=== PATIENT | female | born 1975 | race Hispanic/Latino ===

== ENCOUNTER 2016-08-10 19:06 | Emergency (ER) | payer OTHER ==
[~2016-08-10] VITALS: Ht 167.6 cm; Wt 130.2 kg
[2016-08-10] MEDS ORDERED: PERCOCET 5/31 TABLET PO (22:29)
[2016-08-10 23:38] VITALS: BP 168/101
== END 2016-08-10 23:56 | disposition home or self-care (01) ==
LOC: EME 19:06
DX: S70.02XA Contusion of left hip, initial encounter (principal); W10.9XXA Fall (on) (from) unspecified stairs and steps, initial encounter; E11.9 Type 2 diabetes mellitus without complications; I10 Essential (primary) hypertension
CPT/HCPCS: 72192; 73502; 99281; 99285

== ENCOUNTER 2016-11-28 12:30 | Emergency (ER) | payer OTHER ==
[~2016-11-28] VITALS: Ht 167.6 cm; Wt 117.8 kg
[~2016-11-28 12:30] MED LIST: PERCOCET 5/31 TABLET PO
[2016-11-28 13:57] LABS: EOSINOPHIL (%) 1.1 % (0-5); EOSINOPHIL COUNT 0.1 K/uL (0-0.3); HEMATOCRIT 35.7 % (36.0-46.0); IMMATURE GRANULOCYTE (%) 0.5 % (0.0-0.7); IMMATURE GRANULOCYTE COUNT 0.1 K/uL; INSTRUMENT ABS NEUTROPHIL CT 7.8 K/uL; LYMPHOCYTE COUNT 2.1 K/uL (1.0-2.8); MCH 25.2 PG (29.0-34.0); MCHC 31.9 G/DL (30.0-36.0); MEAN PLAT.VOLUME 10.6 uM^3 (9.5-12.4); MONOCYTE (%) 4.4 % (3-12); MONOCYTE COUNT 0.5 K/uL (0-0.8); NEUTROPHIL (%) 73.9 % (45-76); NEUTROPHIL COUNT 7.8 K/uL (1.8-6.4); PLATELET COUNT 266 K/uL (156-360); RBC DIS.WIDTH-CV 14.7 % (11.8-14.6); RBC DIS.WIDTH-SD 42.5 % (39-53); RED BLOOD COUNT 4.52 M/uL (3.80-5.20); WHITE BLOOD COUNT 10.5 K/uL (4.1-10.2)
[2016-11-28 14:06] LABS: CHLORIDE 107 mEq/L (99-109); POTASSIUM 4.2 mEq/L (3.7-5.4); SODIUM 139 mEq/L (136-147)
[2016-11-28 14:08] LABS: GLUCOSE 97 mg/dL (70-99)
[2016-11-28 14:09] LABS: ANION GAP 6 MEQ/L (2-14)
[2016-11-28 14:10] LABS: TOTAL BILIRUBIN 1.1 mg/dL (0.0-1.0)
[2016-11-28 14:12] LABS: ALKALINE PHOSPHATASE 67 IU/L (3-129); GFR ESTIMATE (CALCULATED) > 59 mL/min/
[2016-11-28 14:13] LABS: UREA NITROGEN (BUN) 13 mg/dL (9-23)
[2016-11-28 14:15] LABS: LIPASE 8 U/L (1.0-51.0)
[2016-11-28 14:18] LABS: TROP-I INTERPRETATION NEGATIVE; TROPONIN-I < 0.01 ng/mL (0.0-0.30)
[2016-11-28 14:21] LABS: QUANTITATIVE HCG < 4.0 MIU/ML
[2016-11-28 14:54] LABS: ADD MIUA? NO; BILIRUBIN NEGATIVE; BLOOD NEGATIVE; COLOR YELLOW ((YELLOW)); GLUCOSE (STRIP) NEGATIVE; KETONES NEGATIVE; LEUKOCYTES NEGATIVE; NITRITE NEGATIVE; PROTEIN (STRIP) 30; SPECIFIC GRAVITY 1.015 (1.000-1.030); UCUL ADDED? NO; UROBILINOGEN 0.2 MG/DL (0.2-1.0)
[2016-11-28 14:57] LABS: D-DIMER ELISA 0.23 mg/L FEU (< 0.57)
[2016-11-28 16:52] LABS: TROP-I INTERPRETATION NEGATIVE; TROPONIN-I < 0.01 ng/mL (0.0-0.30)
[2016-11-28 17:42] VITALS: BP 152/94
== END 2016-11-28 17:43 | disposition home or self-care (01) ==
LOC: EME 12:30
PROVIDERS: Emergency Medicine
DX: R07.9 Chest pain, unspecified (principal); M54.89 Other dorsalgia; R11.0 Nausea; R06.02 Shortness of breath; R25.2 Cramp and spasm; I10 Essential (primary) hypertension
CPT/HCPCS: 71020; 80053; 81003; 83690; 84484; 84702; 85025; 85379; 93005; 99281; 99285

== ENCOUNTER 2017-04-17 16:44 | Emergency (ER) | payer OTHER ==
[~2017-04-17] VITALS: Ht 167.6 cm; Wt 118.0 kg
[2017-04-17] MEDS ORDERED: NORVASC10 MG PO (17:16)
[2017-04-17] MEDS ORDERED: LOSARTAN POTAS100 MG PO (17:16)
[2017-04-17 18:55] VITALS: BP 155/91
== END 2017-04-17 18:56 | disposition home or self-care (01) ==
LOC: EME 16:44
DX: R51 Headache (principal); M54.2 Cervicalgia; R11.0 Nausea; I10 Essential (primary) hypertension
CPT/HCPCS: 99281; 99284; J0780; J1100; J1200; J7030

== ENCOUNTER 2017-05-21 18:54 | Emergency (ER) | payer OTHER ==
[~2017-05-21] VITALS: Ht 167.6 cm; Wt 123.0 kg
[~2017-05-21 18:54] MED LIST changes: +LOSARTAN POTAS100 MG PO; +NORVASC10 MG PO
[2017-05-21 19:57] LABS: D-DIMER ELISA < 150.00 ng/mLDDU (<230)
[2017-05-21 19:59] LABS: CHLORIDE 108 mEq/L (99-109); POTASSIUM 3.5 mEq/L (3.7-5.4); SODIUM 138 mEq/L (136-147)
[2017-05-21 20:00] LABS: HEMATOCRIT 33.6 % (36.0-46.0); MCH 26.6 PG (29.0-34.0); MCHC 32.7 G/DL (30.0-36.0); MCV 81.4 FL (83-99); MEAN PLAT.VOLUME 10.7 uM^3 (9.5-12.4); PLATELET COUNT 243 K/uL (156-360); RBC DIS.WIDTH-CV 16.1 % (11.8-14.6); RBC DIS.WIDTH-SD 47.7 % (39-53); RED BLOOD COUNT 4.13 M/uL (3.80-5.20); WHITE BLOOD COUNT 14.8 K/uL (4.1-10.2)
[2017-05-21 20:01] LABS: GLUCOSE 388 mg/dL (70-99)
[2017-05-21 20:02] LABS: ANION GAP 9 MEQ/L (2-14)
[2017-05-21 20:03] LABS: TOTAL BILIRUBIN 0.6 mg/dL (0.0-1.0)
[2017-05-21 20:05] LABS: ALKALINE PHOSPHATASE 75 IU/L (3-129); GFR ESTIMATE (CALCULATED) 53 mL/min/
[2017-05-21 20:06] LABS: UREA NITROGEN (BUN) 20 mg/dL (9-23)
[2017-05-21 20:10] LABS: TROP-I INTERPRETATION NEGATIVE; TROPONIN-I 0.02 ng/mL (0.0-0.30)
[2017-05-21 20:13] LABS: QUANTITATIVE HCG < 4.0 MIU/ML
[2017-05-21] MEDS ORDERED: HYCODAN SYRUP480 ML PO (20:58)
[2017-05-21] MEDS ORDERED: ZITHROMAX Z-PA250 MG PO (20:58)
[2017-05-21 21:20] VITALS: BP 154/79
== END 2017-05-21 21:21 | disposition home or self-care (01) ==
LOC: EME 18:54
PROVIDERS: Physician Assistant
DX: J45.909 Unspecified asthma, uncomplicated (principal); R05 Cough; E11.65 Type 2 diabetes mellitus with hyperglycemia; I10 Essential (primary) hypertension; Z79.84 Long term (current) use of oral hypoglycemic drugs; G47.30 Sleep apnea, unspecified
CPT/HCPCS: 71020; 80053; 83880; 84484; 84702; 85027; 85379; 93005; 94640; 99281; 99284

== ENCOUNTER 2017-09-29 17:08 | Emergency (ER) | payer OTHER ==
[~2017-09-29] VITALS: Ht 170.2 cm; Wt 119.8 kg
[~2017-09-29 17:08] MED LIST changes: +HYCODAN SYRUP480 ML PO; +ZITHROMAX Z-PA250 MG PO
[2017-09-29 19:19] LABS: HEMATOCRIT 36.5 % (36.0-46.0); HEMOGLOBIN 12.3 G/DL (11.9-15.5); MCH 26.4 PG (29.0-34.0); MCHC 33.7 G/DL (30.0-36.0); MCV 78.3 FL (83-99); PLATELET COUNT 311 K/uL (156-360); RBC DIS.WIDTH-CV 14.4 % (11.8-14.6); RBC DIS.WIDTH-SD 40.5 % (39-53); RED BLOOD COUNT 4.66 M/uL (3.80-5.20)
[2017-09-29 19:47] LABS: TROP-I INTERPRETATION NEGATIVE; TROPONIN-I < 0.01 ng/mL (0.0-0.30)
[2017-09-29 19:48] LABS: CHLORIDE 105 mEq/L (99-109); POTASSIUM 3.4 mEq/L (3.7-5.4); SODIUM 140 mEq/L (136-147)
[2017-09-29 19:49] LABS: GLUCOSE 192 mg/dL (70-99)
[2017-09-29 19:53] LABS: CREATININE 0.9 mg/dL (0.6-1.3); GFR ESTIMATE (CALCULATED) > 59 mL/min/
[2017-09-29 19:54] LABS: UREA NITROGEN (BUN) 16 mg/dL (9-23)
[2017-09-29 21:03] LABS: D-DIMER ELISA < 150.00 ng/mLDDU (<230)
[2017-09-29 22:36] LABS: TROP-I INTERPRETATION NEGATIVE; TROPONIN-I 0.01 ng/mL (0.0-0.30)
[2017-09-30] MEDS ORDERED: ZITHROMAX Z-PA250 MG PO (00:10)
[2017-09-30 00:58] VITALS: BP 138/83
== END 2017-09-30 00:58 | disposition home or self-care (01) ==
LOC: EME 17:08
PROVIDERS: Physician Assistant
DX: J01.20 Acute ethmoidal sinusitis, unspecified (principal); E11.65 Type 2 diabetes mellitus with hyperglycemia; I10 Essential (primary) hypertension; R19.7 Diarrhea, unspecified; J45.909 Unspecified asthma, uncomplicated; G47.30 Sleep apnea, unspecified; Z88.1 Allergy status to other antibiotic agents
CPT/HCPCS: 70450; 71046; 80048; 84484; 85027; 85379; 87177; 87493; 87506; 93005; 99281; 99285; J1885; J7030

== ENCOUNTER 2017-12-18 15:02 | Emergency (ER) | payer OTHER ==
[~2017-12-18] VITALS: Ht 167.6 cm; Wt 116.5 kg
[2017-12-18 16:08] LABS: HEMATOCRIT 36.1 % (36.0-46.0); HEMOGLOBIN 12.1 G/DL (11.9-15.5); MCH 26.5 PG (29.0-34.0); MCHC 33.5 G/DL (30.0-36.0); PLATELET COUNT 249 K/uL (156-360); RBC DIS.WIDTH-CV 14.6 % (11.8-14.6); RBC DIS.WIDTH-SD 42.1 % (39-53); RED BLOOD COUNT 4.57 M/uL (3.80-5.20); WHITE BLOOD COUNT 9.1 K/uL (4.1-10.2)
[2017-12-18 16:10] LABS: CHLORIDE 106 mEq/L (99-109); POTASSIUM 3.7 mEq/L (3.7-5.4); SODIUM 143 mEq/L (136-147)
[2017-12-18 16:12] LABS: GLUCOSE 100 mg/dL (70-99)
[2017-12-18 16:16] LABS: CREATININE 1.1 mg/dL (0.6-1.3); GFR ESTIMATE (CALCULATED) 58 mL/min/
[2017-12-18 16:17] LABS: UREA NITROGEN (BUN) 19 mg/dL (9-23)
[2017-12-18 16:24] LABS: TROP-I INTERPRETATION NEGATIVE; TROPONIN-I 0.01 ng/mL (0.0-0.30)
[2017-12-18 16:25] LABS: QUANTITATIVE HCG < 4.0 MIU/ML
[2017-12-18 17:37] LABS: D-DIMER ELISA < 150.00 ng/mLDDU (<230)
[2017-12-18 20:40] VITALS: BP 158/83
== END 2017-12-18 20:53 | disposition short-term general hospital (02) ==
LOC: EME 15:02
PROVIDERS: Physician Assistant Medical
DX: R07.9 Chest pain, unspecified (principal); J45.909 Unspecified asthma, uncomplicated; G47.30 Sleep apnea, unspecified; I10 Essential (primary) hypertension; E11.9 Type 2 diabetes mellitus without complications; Z82.49 Family history of ischemic heart disease and other diseases of the circulatory system; Z88.1 Allergy status to other antibiotic agents
CPT/HCPCS: 71046; 80048; 84484; 84702; 85027; 85379; 93005; 99281; 99285; J2405

== ENCOUNTER 2018-01-13 05:11 | Emergency (ER) | payer OTHER ==
[~2018-01-13] VITALS: Ht 170.2 cm; Wt 115.0 kg
[2018-01-13 05:41] LABS: BASOPHIL (%) 0.3 % (0-1); EOSINOPHIL (%) 1.1 % (0-5); EOSINOPHIL COUNT 0.1 K/uL (0-0.3); HEMATOCRIT 32.2 % (36.0-46.0); HEMOGLOBIN 10.8 G/DL (11.9-15.5); IMMATURE GRANULOCYTE (%) 0.9 % (0.0-0.7); LYMPHOCYTE (%) 13.9 % (15-42); LYMPHOCYTE COUNT 1.6 K/uL (1.0-2.8); MCH 26.4 PG (29.0-34.0); MCHC 33.5 G/DL (30.0-36.0); MCV 78.7 FL (83-99); MONOCYTE (%) 6.2 % (3-12); MONOCYTE COUNT 0.7 K/uL (0-0.8); NEUTROPHIL (%) 77.6 % (45-76); NEUTROPHIL COUNT 8.8 K/uL (1.8-6.4); PLATELET COUNT 194 K/uL (156-360); RBC DIS.WIDTH-CV 14.8 % (11.8-14.6); RBC DIS.WIDTH-SD 42.2 % (39-53); RED BLOOD COUNT 4.09 M/uL (3.80-5.20); WHITE BLOOD COUNT 11.3 K/uL (4.1-10.2)
[2018-01-13 05:43] LABS: CHLORIDE 108 mEq/L (99-109); POTASSIUM 3.5 mEq/L (3.7-5.4); SODIUM 142 mEq/L (136-147)
[2018-01-13 05:45] LABS: GLUCOSE 100 mg/dL (70-99)
[2018-01-13 05:46] LABS: TOTAL PROTEIN 6.9 g/dL (6.4-8.3)
[2018-01-13 05:47] LABS: TOTAL BILIRUBIN 1.3 mg/dL (0.0-1.0)
[2018-01-13 05:49] LABS: ALKALINE PHOSPHATASE 65 IU/L (3-129); GFR ESTIMATE (CALCULATED) > 59 mL/min/
[2018-01-13 05:50] LABS: UREA NITROGEN (BUN) 17 mg/dL (9-23)
[2018-01-13 05:51] LABS: AST (GOT) 11 IU/L (2-34)
[2018-01-13 05:52] LABS: ALT (GPT) 14 IU/L (3-49); LIPASE 5 U/L (1.0-51.0)
[2018-01-13 05:58] LABS: QUANTITATIVE HCG < 4.0 MIU/ML
[2018-01-13 06:36] LABS: APPEARANCE CLEAR ((CLEAR)); BILIRUBIN NEGATIVE; BLOOD NEGATIVE; COLOR YELLOW ((YELLOW)); GLUCOSE (STRIP) NEGATIVE; KETONES 20; LEUKOCYTES NEGATIVE; NITRITE NEGATIVE; PROTEIN (STRIP) NEGATIVE; SPECIFIC GRAVITY 1.023 (1.000-1.030); UCUL ADDED? NO; UROBILINOGEN 0.2 MG/DL (0.2-1.0)
[2018-01-13] MEDS ORDERED: BENTYL20 MG PO (08:39)
[2018-01-13 08:56] VITALS: BP 169/81
== END 2018-01-13 09:01 | disposition home or self-care (01) ==
LOC: EME 05:11
PROVIDERS: Emergency Medicine
DX: R10.84 Generalized abdominal pain (principal); K59.00 Constipation, unspecified; E11.9 Type 2 diabetes mellitus without complications; I10 Essential (primary) hypertension; J45.909 Unspecified asthma, uncomplicated; G47.30 Sleep apnea, unspecified
CPT/HCPCS: 74177; 80053; 81003; 83690; 84702; 85025; 99281; 99285; J1200; J2270; J2930; J7030